=== PATIENT | male | born 1970 | race Hispanic/Latino ===

== ENCOUNTER 2018-07-03 19:41 | Inpatient (IN) | payer SELFPAY ==
[2018-07-03] MEDS ORDERED: NA CHLORIDE 0.9% 1,000 ML ONE (20:19)
--- NOTE | 2018-07-03 20:30 | RAD REPORT ---
EXAM DESCRIPTION: CT - Head Brain Wo Cont - 07/03/2018 8:23 pm CLINICAL HISTORY: Confusion/declining state COMPARISON: 2016 TECHNIQUE: Computed axial tomography of the head was obtained. IV contrast was not requested. All CT scans are performed using dose optimization technique as appropriate and may include automated exposure control or mA/KV adjustment according to patient size. FINDINGS: An intracranial bleed is not seen . The ventricles are normal in caliber. No extra-axial fluid collection is noted. Prominent cerebral atrophy is seen which appears mildly pro gressed from the prior exam Fluid within the sinuses/ mastoids is not seen. IMPRESSION: Cerebral atrophy appears progressed from the prior exam.
[2018-07-03 21:03] LABS: Absolute Lymphocytes (CBC) 0.6 K/uL (0.7-4.9); Absolute Monocytes 0.6 K/uL (0.1-1.3); Absolute Neutrophil 9.8 K/uL (1.8-8.0); Basophils % 0.4 % (0-1.3); Eosinophils % 0.1 % (0-4.4); Lymphocytes % 5.6 % (15.3-44.8); MCH 22.5 pg (27.0-35.0); MPV 8.6 fL (7.6-11.3); RBC Red Blood Cell Count 4.52 M/uL (4.33-5.43)
--- NOTE | 2018-07-03 21:11 | RAD REPORT ---
EXAM DESCRIPTION: Ba Single View07/03/2018 8:40 pm CLINICAL HISTORY: Chest pain COMPARISON: January 2017 FINDINGS: Lungs are hyperaerated. The lungs appear clear of acute infiltrate. The heart is normal s ize IMPRESSION: No acute abnormalities displayed
[2018-07-03 21:21] LABS: ALT/SGPT 96 U/L (12-78); AST/SGOT 89 U/L (15-37); Albumin 3.4 g/dL (3.4-5.0); Alkaline Phosphatase 100 U/L (45-117); BUN Blood Urea Nitrogen 53 mg/dL (7-18); Bicarbonate 17 mmol/L (21-32); Bilirubin Direct 0.6 mg/dL (0-0.2); Bilirubin Total 1.3 mg/dL (0.2-1.0); Glucose Level 133 mg/dL (74-106); Magnesium 2.7 mg/dL (1.8-2.4); NT PRO-BNP 344 pg/mL (<125); Potassium 3.4 mmol/L (3.5-5.1); Protein, Total 7.4 g/dL (6.4-8.2); Sodium Level 138 mmol/L (136-145); Troponin (Emerg Dept Use Only) < 0.02 ng/mL (0.0-0.045)
[2018-07-03 21:38] LABS: Anisocytosis 1+; Blood Morphology Comment NOTED (NOT SEEN); Burr Cells 2+; Hypochromasia 1+; Platelet Estimate ADEQ
--- NOTE | 2018-07-03 22:26 | ER ---
Nurse's Notes [facility] Name: Sal Karimi Age: 47 yrs Sex: Male : 1970 Arrival Date: 07/03/2018 Time: 19:46 Bed 3 Private MD: Diagnosis: Altered mental status, unspecified;Dehydration Presentation: 07/03 19:52 Presenting complaint: EMS states: "we were called out for a pt that was feeling weak, jd3 family reports the pt probably haven't eaten in a 2 weeks. They also reported that he drinks normally and hasn't alcohol for 2 weeks ether. he normally is A\\T\\O X 4, but today he is weak when walking and A\\T\\O X 1.". Transition of care: patient was not received from another setting of care. Onset of symptoms was July 03, 2018. Risk Assessment: Do you want to hurt yourself or someone else? Patient reports no desire to harm self or others. Initial Sepsis Screen: Does the patient meet any 2 criteria? Altered Mental Status. No. Patient's initial sepsis screen is negative. Does the patient have a suspected source of infection? No. Patient's initial sepsis screen is negative. Care prior to arrival: Medication(s) given: Normal saline infusion, 150 ml IV initiated. 20 GA, in the left hand, Glucose check: 127. 19:52 Method Of Arrival: EMS: [facility] jd3 19:52 Acuity: ROHIT 2 jd3 Historical: - Allergies: 20:00 No Known Allergies; jd3 - Home Meds: 20:00 ergocalciferol (vitamin D2) oral oral [Active]; omeprazole 20 mg Oral TbEC twice a day jd3 [Active]; cyclobenzaprine 10 mg Oral tab 1 tab every 8 hours [Active]; citalopram 40 mg tab 0.5 tab once daily [Active]; - PMHx: 20:00 Anemia; Depression; jd3 - PSHx: 20:00 None; jd3 - Immunization history:: Adult Immunizations unknown. - Social history:: Smoking status: unknown. - Ebola Screening: : Patient negative for fever greater than or equal to 101.5 degrees Fahrenheit, and additional compatible Ebola Virus Disease symptoms. Screenin:05 Abuse screen: Denies threats or abuse. Nutritional screening: pt's family reported pt jd3 probably hasn't eaten in 2 weeks.. Tuberculosis screening: No symptoms or risk factors identified. Fall Risk Ambulatory Aid- None/Bed Rest/Nurse Assist (0 pts). Gait- Weak (10 pts.). Mental Status- Overestimates/Forgets Limitations (15 pts.). Total [place] Fall Scale indicates Low Risk Score (25-44 pts). Fall prevention measures have been instituted. Side Rails Up X 2 Placed close to Nursing Station Frequent Obs/Assesments occuring. Assessment: 20:01 General: Appears uncomfortable, Behavior is calm, inappropriate for age. Pain: Denies jd3 pain. Neuro: Level of Consciousness is awake, confused, Oriented to person. Cardiovascular: Heart tones S1 S2 present Capillary refill < 3 seconds Patient's skin is warm and dry. Rhythm is sinus tachycardia. Respiratory: Airway is patent Respiratory effort is even, unlabored, Respiratory pattern is regular, symmetrical, Breath sounds are clear bilaterally. GI: Abdomen is flat, Bowel sounds present X 4 quads. Abd is soft and non tender X 4 quads. Patient currently denies abdominal pain, nausea, vomiting. : No signs and/or symptoms were reported regarding the genitourinary system. EENT: No signs and/or symptoms were reported regarding the EENT system. Derm: Skin is intact, Skin is dry, Skin is normal, Skin temperature is warm. Musculoskeletal: Circulation, motion, and sensation intact. Range of motion: intact in all extremities. 20:56 Reassessment: Patient appears in no apparent distress at this time. Patient and/or jd3 family updated on plan of care and expected duration. Pain level reassessed. family at [facility]. 21:47 Reassessment: Patient appears in no apparent distress at this time. No changes from jd3 previously documented assessment. Patient and/or family updated on plan of care and expected duration. Pain level reassessed. 22:30 Reassessment: Patient appears in no apparent distress at this time. No changes from jd3 previously documented assessment. Patient and/or family updated on plan of care and expected duration. Pain level reassessed. 23:26 Reassessment: Patient appears in no apparent distress at this time. No changes from jd3 previously documented assessment. Patient and/or family updated on plan of care and expected duration. Pain level reassessed. 07/04 00:12 Reassessment: Patient appears in no apparent distress at this time. No changes from [facility] previously documented assessment. Patient and/or family updated on plan of care and expected duration. Pain level reassessed. Vital Signs: 07/03 20:00 BP 111 / 86; Pulse 107; Resp 18 S; Temp 97.5(A); Pulse Ox 100% on R/A; Weight 72.57 kg jd3 (R); Height 6 ft. 0 in. (182.88 cm) (R); Pain 0/10; 20:40 BP 110 / 97; Pulse 115; Resp 17 S; Pulse Ox 100% on R/A; jd3 21:47 BP 117 / 91; Pulse 104; Resp 16 S; Pulse Ox 97% on R/A; jd3 22:30 BP 122 / 88; Pulse 102; Resp 18 S; Pulse Ox 98% on R/A; jd3 23:20 BP 103 / 92; Pulse 102; Resp 17 S; Pulse Ox 100% on R/A; jd3 07/04 00:12 BP 113 / 79; Pulse 97; Resp 17 S; Pulse Ox 100% on R/A; jd3 07/03 20:00 Body Mass Index 21.70 (72.57 kg, 182.88 cm) [facility] ED Course: 07/03 19:46 Patient arrived in ED. ds1 19:47 Ted Fernandes MD is Attending Physician. tw4 19:52 Danish Guadarrama, RN is Primary Nurse. jd3 19:57 Triage completed. jd3 20:01 Arm band placed on. EKG completed in triage. Results shown to MD. jd3 20:06 Patient has correct armband on for positive identification. Bed in low position. Call j light in reach. Side rails up X2. 20:10 CT completed. Patient moved to CT via stretcher. Patient moved back from CT. cw1 20:23 CT Head Brain wo Cont In Process Unspecified. EDMS 20:36 Maintain EMS IV. Dressing intact. Site clean \\T\\ dry. Gauge \\T\\ site: 20 G in left hand. robin 3 flushes well. 20:40 XRAY Chest (1 view) In Process Unspecified. EDMS 20:55 EKG done, by ED staff, reviewed by Ted Fernandes MD. ds4 20:55 Acetaminophen Sent. ds4 20:55 ETOH Level Sent. ds4 20:55 Ptt, Activated Sent. ds4 20:55 Salicylate Sent. ds4 20:55 Basic Metabolic Panel Sent. ds4 20:56 CBC with Diff Sent. ds4 20:56 LFT's Sent. ds4 20:56 Magnesium Sent. ds4 20:56 NT PRO-BNP Sent. ds4 20:56 PT-INR Sent. ds4 20:56 Troponin (emerg Dept Use Only) Sent. ds4 22:25 Maricruz Bess MD is Hospitalizing Provider. tw4 22:55 Lab(s) recollected, by me, sent to lab. Inserted 18 gauge 8 cm midline to right upper fc arm brachial vein on first attempt. Line with good blood return and flushes well. 23:01 Ptt, Activated Sent. ds4 23:01 PT-INR Sent. ds4 23:45 Straight cath inserted, using sterile technique, 16 Fr. Specimen obtained. ea 07/04 00:20 No provider procedures requiring assistance completed. Patient admitted, IV remains in jd3 place. Administered Medications: 07/03 20:35 Drug: NS 0.9% 1000 ml Route: IV; Rate: 125 ml/hr; Site: left hand; jd3 07/04 00:18 Follow up: Response: No adverse reaction; IV Status: Infusion continued upon admission ea 07/03 23:53 Drug: Banana Bag - (NS 0.9% 1000 ml, foLIC Acid 1 mg, Thiamine 100 mg, Multivitamin 1 jd3 amp) Route: IV; Rate: calculated rate; Site: right antecubital; 07/04 00:18 Follow up: IV Status: Infusion continued upon admission ea Outcome: 07/03 22:25 Decision to Hospitalize by Provider. tw4 07/04 00:21 Admitted to Med/surg accompanied by tech, via stretcher, room 415, with chart, Report jd3 called to Vaisliy ROSE Condition: stable Instructed on the need for admit, Demonstrated understanding of instructions. 00:29 Patient left the ED. jd3 Signatures: Dispatcher [employer] EDMS Sissy Hanna RN RN fc Sanford, Demi ds1 Richelle Menjivar1 Ramana Kelly ds4 Tanya Jackson RN RN ea Davies, Jonathon, RN RN jd3 Wadley, Terrence, MD CRUZ tw4
--- NOTE | 2018-07-03 22:26 | EDPHYS ---
Physician Documentation [facility] Name: Sal Karimi Age: 47 yrs Sex: Male : 1970 Arrival Date: 07/03/2018 Time: 19:46 Bed 3 Private MD: ED Physician Ted Fernandes HPI: 07/04 00:25 This 47 yrs old Male presents to ER via EMS with complaints of Altered Mental tw4 Status. 00:25 The patient presents with decreased mental status, decreased responsiveness. Onset: The tw4 symptoms/episode began/occurred at an unknown time. Possible causes: alcohol, head injury, low blood sugar. Associated signs and symptoms: The patient has no apparent associated signs or symptoms. Current symptoms: In the emergency department the patient's symptoms are unchanged from the initial presentation. Patient's baseline: Neuro: alert and fully oriented. Unable to obtain HPI due to altered mental status, patient's inability to understand questions. It is unknown whether or not the patient has had similar symptoms in the past. Historical: - Allergies: 07/03 20:00 No Known Allergies; jd3 - Home Meds: 20:00 ergocalciferol (vitamin D2) oral oral [Active]; omeprazole 20 mg Oral TbEC twice a day jd3 [Active]; cyclobenzaprine 10 mg Oral tab 1 tab every 8 hours [Active]; citalopram 40 mg tab 0.5 tab once daily [Active]; - PMHx: 20:00 Anemia; Depression; jd3 - PSHx: 20:00 None; jd3 - Immunization history:: Adult Immunizations unknown. - Social history:: Smoking status: unknown. - Ebola Screening: : Patient negative for fever greater than or equal to 101.5 degrees Fahrenheit, and additional compatible Ebola Virus Disease symptoms. ROS: 07/04 00:25 Unable to obtain ROS due to altered mental status. tw4 Exam: 00:25 Constitutional: This is a well developed, well nourished patient who is awake, alert, tw4 and in no acute distress. Head/Face: Normocephalic, atraumatic. Chest/axilla: Normal chest wall appearance and motion. Nontender with no deformity. No lesions are appreciated. Cardiovascular: Regular rate and rhythm with a normal S1 and S2. No gallops, murmurs, or rubs. Normal PMI, no JVD. No pulse deficits. Respiratory: Lungs have equal breath sounds bilaterally, clear to auscultation and percussion. No rales, rhonchi or wheezes noted. No increased work of breathing, no retractions or nasal flaring. Abdomen/GI: Soft, non-tender, with normal bowel sounds. No distension or tympany. No guarding or rebound. No evidence of tenderness throughout. Back: No spinal tenderness. No costovertebral tenderness. Full range of motion. MS/ Extremity: Pulses equal, no cyanosis. Neurovascular intact. Full, normal range of motion. 00:25 Neuro: Orientation: to person, Not oriented to place, time, situation, Mentation: slow to respond, confused, Memory: unable to test, Cranial nerves: unable to test, ALTERED MENTAL STATUS. Vital Signs: 07/03 20:00 BP 111 / 86; Pulse 107; Resp 18 S; Temp 97.5(A); Pulse Ox 100% on R/A; Weight 72.57 kg jd3 (R); Height 6 ft. 0 in. (182.88 cm) (R); Pain 0/10; 20:40 BP 110 / 97; Pulse 115; Resp 17 S; Pulse Ox 100% on R/A; jd3 21:47 BP 117 / 91; Pulse 104; Resp 16 S; Pulse Ox 97% on R/A; jd3 22:30 BP 122 / 88; Pulse 102; Resp 18 S; Pulse Ox 98% on R/A; jd3 23:20 BP 103 / 92; Pulse 102; Resp 17 S; Pulse Ox 100% on R/A; jd3 07/04 00:12 BP 113 / 79; Pulse 97; Resp 17 S; Pulse Ox 100% on R/A; jd3 07/03 20:00 Body Mass Index 21.70 (72.57 kg, 182.88 cm) jd3 MDM: 07/03 19:50 Patient medically screened. tw4 21:35 Patient medically screened. tw4 07/04 00:29 Data reviewed: vital signs, nurses notes. Data interpreted: Pulse oximetry: tw4 Interpretation: normal. Counseling: I had a detailed discussion with the patient and/or guardian regarding: the historical points, exam findings, and any diagnostic results supporting the discharge/admit diagnosis. Special discussion: I discussed with the patient/guardian in detail that at this point there is no indication for admission to the hospital. It is understood, however, that if the symptoms persist or worsen the patient needs to return immediately for re-evaluation. 07/03 19:52 Order name: Basic Metabolic Panel tw4 07/03 21:35 Interpretation: Normal except: K 3.4; GLUC 133; CO2 17; BUN 53; GFR 72. tw 07/03 19:52 Order name: CBC with Diff; Complete Time: 22:18 tw 07/03 21:37 Interpretation: Normal except: WBC 11.1; HGB 10.2; HCT 33.0; MCV 73.0; MCH 22.5; MCHC tw4 30.8; NEUT A 9.8; LYM% 5.6; SHILOH% 88.9; RDW 21.6; LYMA 0.6. 07/03 19:52 Order name: LFT's [facility] 07/03 21:36 Interpretation: Normal except: AST 89; ALT 96; BILIT 1.3; BILID 0.6; GLOB 4.0; A/G 0.9. tw07/03 19:52 Order name: Magnesium 07/03 21:36 Interpretation: Normal except: MG 2.7. 07/03 19:52 Order name: NT PRO-BNP 07/03 21:36 Interpretation: Normal except: NT PRO-BNP 344. 07/03 19:52 Order name: PT-INR 07/03 19:52 Order name: Troponin (emerg Dept Use Only) tw 07/03 21:37 Interpretation: Within normal limits: TROPED < 0.02. 07/03 19:52 Order name: Urine Drug Screen 07/03 19:52 Order name: Acetaminophen 07/03 19:52 Order name: ETOH Level; Complete Time: 21:35 tw 07/03 21:37 Interpretation: Within normal limits: ETOH < 3. 07/03 19:52 Order name: Ptt, Activated 07/03 19:52 Order name: Salicylate; Complete Time: 21:35 tw 07/03 21:37 Interpretation: Normal except: PEDRO LUIS 2.3. [facility] 07/03 21:10 Order name: Manual Differential; Complete Time: 22:18 EDMS 07/03 23:37 Order name: Ketone, Serum jd3 07/03 19:52 Order name: XRAY Chest (1 view); Complete Time: 21:35 tw4 07/03 19:52 Order name: EKG; Complete Time: 19:53 tw4 07/03 19:52 Order name: Cardiac monitoring; Complete Time: 19:55 tw4 07/03 19:52 Order name: EKG - Nurse/Tech; Complete Time: 20:07 tw4 07/03 19:52 Order name: IV Saline Lock; Complete Time: 20:07 tw4 07/03 19:52 Order name: Labs collected and sent; Complete Time: 20:53 tw4 07/03 19:52 Order name: O2 Per Protocol; Complete Time: 20:07 tw4 07/03 19:52 Order name: O2 Sat Monitoring; Complete Time: 20:08 tw4 07/03 19:52 Order name: Urine Dipstick-Ancillary (obtain specimen); Complete Time: 23:55 tw4 07/03 19:52 Order name: CT Head Brain wo Cont; Complete Time: 21:15 tw4 07/03 23:46 Order name: Acetone Level EDPA 07/03 23:55 Order name: CPK fc 07/03 23:58 Order name: Urine Dipstick--Ancillary (enter results) ms 07/04 00:14 Order name: Creatine Phosphokinase EDPA 07/03 23:37 Order name: Straight Cath - Urine; Complete Time: 23:53 jd3 EC:24 Rate is 112 beats/min. Rhythm is regular. QRS [place] is Normal. MO interval is normal. tw4 QRS interval is normal. QT interval is normal. No Q waves. T waves are Inverted in leads III, aVF. No ST changes noted. Clinical impression: Sinus tachycardia. Interpreted by me. Reviewed by me. Administered Medications: 07/03 20:35 Drug: NS 0.9% 1000 ml Route: IV; Rate: 125 ml/hr; Site: left hand; jd3 07/04 00:18 Follow up: Response: No adverse reaction; IV Status: Infusion continued upon admission ea 07/03 23:53 Drug: Banana Bag - (NS 0.9% 1000 ml, foLIC Acid 1 mg, Thiamine 100 mg, Multivitamin 1 jd3 amp) Route: IV; Rate: calculated rate; Site: right antecubital; 07/04 00:18 Follow up: IV Status: Infusion continued upon admission ea Disposition: 07/03/18 22:25 Hospitalization ordered by Maricruz Bess for Inpatient Admission. Preliminary diagnosis are Altered mental status, unspecified, Dehydration. - Bed requested for Telemetry/MedSurg (Inpatient). - Status is Inpatient Admission. jd3 - Condition is Stable. - Problem is new. - Symptoms have improved. UTI on Admission? No Signatures: Dispatcher [employer] EDPA Madie Woodard RN RN Danish Guadarrama RN RN j Ted Fernandes MD MD tw4 Tanya Jackson RN, ea Corrections: (The following items were deleted from the chart) 07/03 21:37 21:37 WBC 11.1; HGB 10.2; HCT 33.0; MCV 73.0; MCH 22.5; MCHC 30.8; NEUT A 9.8; LYM% tw4 5.6; SHILOH% 88.9; RDW 21.6; LYMA 0.6. 22:32 22:25 Hospitalization Ordered by Maricruz Bess MD for Inpatient Admission. Preliminary diagnosis is Altered mental status, unspecified; Dehydration. Bed requested for Telemetry/MedSurg (Inpatient). Status is Inpatient Admission. Condition is Stable. Problem is new. Symptoms have improved. UTI on Admission? No. tw4 07/04 00:29 07/03 22:32 07/03/2018 22:25 Hospitalization Ordered by Maricruz Bess MD for Inpatient jd3 Admission. Preliminary diagnosis is Altered mental status, unspecified; Dehydration. Bed requested for Telemetry/MedSurg (Inpatient). Status is Inpatient Admission. Condition is Stable. Problem is new. Symptoms have improved. UTI on Admission? No. mw
[2018-07-03 23:22] LABS: Protime INR 1.18
[2018-07-03] MEDS ORDERED: MAGNESIUM HYDROXIDE 8% 30 ML PO PRN (23:40)
[2018-07-03] MEDS ORDERED: ACETAMINOPHEN 500 MG TAB PO PRN (23:40)
[2018-07-03] MEDS ORDERED: ONDANSETRON 4 MG/2 ML VIAL IV PRN (23:40)
[2018-07-03] MEDS ORDERED: ALPRAZOLAM 0.25 MG TABLET PO PRN (23:40)
[2018-07-03] MEDS: NA CHLORIDE 0.9% 1,000 ML IV SCH (23:45)
[2018-07-03] MEDS ORDERED: ALBUTEROL 2.5 MG/3 ML NEB SOL NEB SCH (23:45)
[2018-07-03] MEDS ORDERED: MULTIVITAMINS 10 ML VIAL (INJ) IV ONE (23:48)
[2018-07-03] MEDS ORDERED: THIAMINE 200 MG/2 ML INJ ONE (23:48)
[2018-07-03] MEDS ORDERED: FOLIC ACID 5 MG/ML VIAL ONE (23:51)
[2018-07-04 00:14] LABS: Creatine Phosphokinase 33 U/L (39-308)
[2018-07-04 00:16] LABS: Barbiturates NEGATIVE (NEGATIVE); Benzodiazepines NEGATIVE (NEGATIVE); Cocaine NEGATIVE (NEGATIVE); METHAMPHETAM NEGATIVE (NEGATIVE); Methadone NEGATIVE (NEGATIVE); Opiates NEGATIVE (NEGATIVE); Phencyclidine NEGATIVE (NEGATIVE); THC Cannibis NEGATIVE (NEGATIVE)
[2018-07-04 01:14] LABS: Urine Blood NEGATIVE (NEG); Urine Glucose NEGATIVE (NEG); Urine Protein 1+ (NEG); Urine Specific Gravity 1.025 (1.005-1.030); Urine pH 5.5 (5.0-7.0)
[2018-07-04] MEDS: IPRATROPIUM BROM 0.5MG/2.5ML NEB SCH ×2 (01:15→08:00)
[2018-07-04 03:59] LABS: Urine Appearance TURBID; Urine Blood NEGATIVE (NEG); Urine Color RED; Urine Glucose NEGATIVE (NEG); Urine Protein NEGATIVE (NEG); Urine Specific Gravity 1.025 (1.005-1.030); Urine pH 5.5 (5.0-7.0)
[2018-07-04 04:04] LABS: Urine Microscopic Reflex ORDER UMIC
[2018-07-04 04:09] LABS: Urine Bilirubin NEGATIVE (NEG)
[2018-07-04 04:31] LABS: Urine Amorphous Sediment 4+ /HPF (NONE SEEN)
[2018-07-04 04:32] LABS: Urine Bacteria 20-50 /HPF (NONE SEEN); Urine Culture Reflex Order REFLEXED; Urine RBC NONE SEEN /HPF (NONE SEEN)
--- NOTE | 2018-07-04 04:47 | P.HP ---
Certification for Inpatient Patient admitted to: Inpatient With expected LOS: >2 Midnights Patient will require the following post-hospital care: None Practitioner: I am a practitioner with admitting privileges, knowledge of patient current condition, hospital course, and medical plan of care. Services: Services provided to patient in accordance with Admission requirements found in Title 42 Section 412.3 of the Code of Federal Regulations Patient History Date of Service: 07/03/18 Reason for admission: Altered mentation History of Present Illness: Patient is a 47-year-old gentleman who came into the hospital with confusion. Patient has a prior history of alcohol use. He says he has not had anything to drink in 2 months. He has had prior workup done which has revealed chronic changes to the brain which are reflective of his alcohol abuse. Patient has been confabulating. Patient continues to be forgetful regarding some the events that have happened to him recently. He will need to be admitted to the hospital for observation stay. If he worsens and we can changes to inpatient. Allergies No Known Allergies Allergy (Uncoded 07/04/18 01:40) unknown Home Medications: Unobtainable 07/04/18 - Past Medical/Surgical History Diabetic: No -: Anemia -: Depression Past Surgical History: Patient denies surgical history - Family History Father Family History: Reviewed- Non-Contributory - Social History Smoking Status: Unknown if ever smoked Alcohol use: Yes CD- Drugs: No Caffeine use: Yes Place of Residence: Home Review of Systems 10-point ROS is otherwise unremarkable Physical Examination - Vital Signs Temperature: 96.8 F Blood Pressure: 109/81 Pulse: 99 Respirations: 16 Pulse Ox (%): 100 - Physical Exam General: Alert, In no apparent distress, Oriented x1 HEENT: Atraumatic, PERRLA, Mucous membr. moist/pink, EOMI, Sclerae nonicteric Neck: Supple, 2+ carotid pulse no bruit, No LAD, Without JVD or thyroid abnormality Respiratory: Clear to auscultation bilaterally, Normal air movement Cardiovascular: Regular rate/rhythm, Normal S1 S2, Systolic murmur Gastrointestinal: Normal bowel sounds, Soft and benign, Non-distended, No tenderness Musculoskeletal: No clubbing, No swelling, No tenderness Integumentary: No rashes Neurological: Normal gait, Normal speech, Normal strength at 5/5 x4 extr, Normal tone, Sensation intact, Cranial nerves 3-12 intact, Normal affect Lymphatics: No axilla or inguinal lymphadenopathy - Studies Laboratory Data (last 24 hrs) 07/03/18 20:40: WBC 11.1 H, Hgb 10.2 L, Hct 33.0 L, Plt Count 194 07/03/18 20:40: Sodium 138, Potassium 3.4 L, BUN 53 H, Creatinine 1.10, Glucose 133 H, Magnesium 2.7 H, Total Bilirubin 1.3 H, AST 89 H, ALT 96 H, Alkaline Phosphatase 100 Assessment & Plan - Problems (Diagnosis) (1) Wernicke-Korsakoff syndrome Current Visit: Yes Status: Acute (2) Alcohol abuse Current Visit: Yes Status: Acute - Plan Plan: 1. IV hydration 2. Multi vitamin, thiamine, folate, B12 and hydrate 3. Counseled regarding over use of narcotics 4. Monitor labs closely 5. MRCP of the abdomen 6. Discuss with Ob regarding further interventions as needed 7. GI and DVT prophylaxis Discharge Plan: Home Plan to discharge in: 48 Hours - Advance Directives Does patient have a Living Will: No Does patient have a Durable POA for Healthcare: No - Code Status/Comfort Care Code Status Assessed: Yes Code Status: Full Code Critical Care: No Time Spent Managing PTS Care (In Minutes): 50
[2018-07-04] MEDS: NA CHLORIDE 0.9% 1,000 ML IV SCH ×2 (05:23→13:05)
[2018-07-04] MEDS ORDERED: POTASSIUM 25 MEQ EFFERV TAB PO ONE ×2 (06:00→19:46)
[2018-07-04 07:08] LABS: Protime INR 1.18
[2018-07-04 07:12] LABS: Absolute Lymphocytes (CBC) 2.9 K/uL (0.7-4.9); Absolute Monocytes 0.3 K/uL (0.1-1.3); Basophils % 0.6 % (0-1.3); Eosinophils % 0.2 % (0-4.4); Hematocrit 23.4 % (39.6-49.0); Lymphocytes % 34.6 % (15.3-44.8); MCH 22.7 pg (27.0-35.0); MCV 71.8 fL (80-100); MPV 7.6 fL (7.6-11.3); RBC Red Blood Cell Count 3.27 M/uL (4.33-5.43)
[2018-07-04 07:27] LABS: ALT/SGPT 74 U/L (12-78); AST/SGOT 68 U/L (15-37); Albumin 2.6 g/dL (3.4-5.0); Alkaline Phosphatase 77 U/L (45-117); BUN Blood Urea Nitrogen 53 mg/dL (7-18); Bicarbonate 22 mmol/L (21-32); Glucose Level 93 mg/dL (74-106); Magnesium 2.6 mg/dL (1.8-2.4); Phosphorus 4.8 mg/dL (2.5-4.9); Potassium 3.5 mmol/L (3.5-5.1); Protein, Total 5.7 g/dL (6.4-8.2); Sodium Level 144 mmol/L (136-145)
[2018-07-04 08:08] LABS: Anisocytosis 2+; Blood Morphology Comment NOTED (NOT SEEN); Macrocytosis 1+; Platelet Estimate ADEQ; Urine White Blood Cell Casts OK
[2018-07-04 08:27] LABS: Absolute Lymphocytes (CBC) 0.4 K/uL (0.7-4.9); Absolute Monocytes 0.5 K/uL (0.1-1.3); Basophils % 0.6 % (0-1.3); Eosinophils % 0.1 % (0-4.4); Hematocrit 24.5 % (39.6-49.0); MCH 22.9 pg (27.0-35.0); MCV 73.2 fL (80-100); MPV 7.4 fL (7.6-11.3); Monocytes % 6.7 % (3.3-12.3); RBC Red Blood Cell Count 3.35 M/uL (4.33-5.43)
[2018-07-04] MEDS ORDERED: ALBUTEROL 2.5 MG/3 ML NEB SOL NEB PRN (08:58)
[2018-07-04] MEDS ORDERED: IPRATROPIUM BROM 0.5MG/2.5ML NEB PRN (08:58)
[2018-07-04] MEDS ORDERED: ENOXAPARIN 40 MG/0.4 ML SQ SCH (09:00)
[2018-07-04] MEDS ORDERED: NA CHLORIDE 0.9% 250 ML ONE (13:35)
[2018-07-04] MEDS: CYCLOBENZAPRINE 10 MG TAB PO SCH ×2 (14:00→21:00)
--- NOTE | 2018-07-04 14:41 | P.PN ---
Subjective Date of Service: 07/04/18 Chief Complaint: Altered mentation Subjective: Tolerating diet, Ambulating, Improving, Working w/ PT, Doing well Review of Systems 10-point ROS is otherwise unremarkable Physical Examination - Vital Signs Temperature: 97.4 F Blood Pressure: 119/71 Pulse: 91 Respirations: 20 Pulse Ox (%): 97 - Physical Exam General: Alert, In no apparent distress HEENT: Atraumatic, PERRLA, EOMI Neck: Supple, JVD not distended Respiratory: Clear to auscultation bilaterally, Normal air movement Cardiovascular: Regular rate/rhythm, Normal S1 S2 Gastrointestinal: Normal bowel sounds, No tenderness Musculoskeletal: No tenderness Integumentary: No rashes Neurological: Normal speech, Normal tone, Normal affect Lymphatics: No axilla or inguinal lymphadenopathy - Studies Laboratory Data (last 24 hrs) 07/03/18 20:40: WBC 11.1 H, Hgb 10.2 L, Hct 33.0 L, Plt Count 194 07/03/18 20:40: Sodium 138, Potassium 3.4 L, BUN 53 H, Creatinine 1.10, Glucose 133 H, Magnesium 2.7 H, Total Bilirubin 1.3 H, AST 89 H, ALT 96 H, Alkaline Phosphatase 100 Medications List Reviewed: Yes Assessment And Plan - Current Problems (Diagnosis) (1) Anemia Current Visit: Yes Status: Acute Plan: Anemia Most Likely from Chronic Alcohol Abuse -2 units transfuse at this time -Repeat hgb Qualifiers: Anemia type: folate deficiency (2) Alcohol abuse Current Visit: Yes Status: Chronic Plan: Chronic Alcohol abuse -Ativan PRN -CIWA protocol (3) Wernicke-Korsakoff syndrome Current Visit: Yes Status: Chronic Discharge Plan: Home Plan to discharge in: 48 Hours - Code Status/Comfort Care Code Status Assessed: Yes Critical Care: No
[2018-07-04] MEDS: PANTOPRAZOLE 40MG TABLET PO SCH (17:17)
--- NOTE | 2018-07-04 19:15 | EKG ---
Test Date: 2018-07-03 Test Time: 20:01:22 [employer]oto [employer] Operator: JOSE MEASUREMENT RESULTS: Intervals: Rate: 112 SD: 134 QRSD: 94 QT: 374 QTc: 510 [place]: P: 83 SD: 134 QRS: 90 T: 63 INTERPRETIVE STATEMENTS: Sinus tachycardia with fusion complexes Right atrial enlargement Rightward axis Pulmonary disease pattern Abnormal ECG Compared to ECG 01/25/2017 11:39:50 Fusion complex(es) now present Atrial abnormality now present Right-axis deviation now present Sinus rhythm no longer present Electronically Signed On 07-04-18 19:14:47 CDT by He Parry
[2018-07-04 19:20] LABS: Hematocrit 26.8 % (39.6-49.0)
[2018-07-04] MEDS ORDERED: HOME MED 1 EA UNK (Omeprazole [Omeprazole] 20 MG) PO SCH (21:00)
[2018-07-04 23:29] VITALS: O2SAT 98
[2018-07-05] MEDS: NA CHLORIDE 0.9% 1,000 ML IV SCH (00:47)
[2018-07-05] MEDS ORDERED: POTASSIUM 25 MEQ EFFERV TAB PO STA (04:19)
[2018-07-05 05:21] LABS: BUN Blood Urea Nitrogen 26 mg/dL (7-18); Bicarbonate 23 mmol/L (21-32); Glucose Level 81 mg/dL (74-106); Magnesium 2.2 mg/dL (1.8-2.4); Phosphorus 2.6 mg/dL (2.5-4.9); Potassium 3.8 mmol/L (3.5-5.1); Sodium Level 147 mmol/L (136-145)
[2018-07-05 05:28] VITALS: BMI 15.7
[2018-07-05] MEDS ORDERED: HOME MED 1 EA UNK (Citalopram Hydrobromide [Celexa] 40 MG) PO SCH (08:00)
[2018-07-05] MEDS ORDERED: POTASSIUM 25 MEQ EFFERV TAB PO ONE (08:00)
[2018-07-05] MEDS ORDERED: CITALOPRAM 10 MG TABLET PO SCH (08:00)
[2018-07-05] MEDS: CYCLOBENZAPRINE 10 MG TAB PO SCH (08:42)
[2018-07-05] MEDS: PANTOPRAZOLE 40MG TABLET PO SCH (08:43)
--- NOTE | 2018-07-05 11:57 | P.DS ---
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 Patient has a prior history of alcohol use. He says he has not had anything to drink in 2 months. He has had prior workup done which has revealed chronic changes to the brain which are reflective of his alcohol abuse. Patient has been confabulating. Patient continues to be forgetful regarding some the events that have happened to him recently. He will need to be admitted to the hospital for observation stay. If he worsens and we can changes to inpatient. Hospital Course: Overall during the hospital stay patient remained stable The patient was initially admitted to the hospital for altered mental status. Patient does have a history of alcohol abuse in the past. Wernicke's encephalopathy is a chronic concern for the patient. Patient does also have confabulation along with it. Patient was then admitted to the hospital was started on IV fluids here and was given 2 units of packed RBCs for his anemia of 7.7. Patient recovered well and was alert and oriented x2. This was discharged home under stable condition. Patient has intermittent confusion along with confabulation due to his chronic Wernicke's 8 aphasia and encephalopathy. Family was made aware of this situation. Patient was then discharged home under stable condition. All lab work and imaging were negative on the date of discharge Vital Signs/Physical Exam: Temp Pulse Resp BP Pulse Ox 96.5 F L 78 16 107/68 100 07/05/18 08:00 07/05/18 08:00 07/05/18 08:00 07/05/18 08:00 07/05/18 08:00 General: Alert, In no apparent distress, Oriented x2, Confused HEENT: Atraumatic, PERRLA, EOMI Neck: Supple, JVD not distended Respiratory: Clear to auscultation bilaterally, Normal air movement Cardiovascular: Regular rate/rhythm, Normal S1 S2 Gastrointestinal: Normal bowel sounds, No tenderness Musculoskeletal: No tenderness Integumentary: No rashes Neurological: Normal speech, Normal tone, Normal affect Lymphatics: No axilla or inguinal lymphadenopathy Laboratory Data at Discharge: WBC 8.0 K/uL (4.3-10.9) 07/04/18 08:07 Hgb 8.3 g/dL (13.6-17.9) L 07/04/18 19:07 Hct 26.8 % (39.6-49.0) L 07/04/18 19:07 Plt Count 142 K/uL (152-406) L 07/04/18 08:07 PT 13.9 SECONDS (9.5-12.5) H 07/04/18 06:40 INR 1.18 07/04/18 06:40 APTT 28.5 SECONDS (24.3-36.9) 07/04/18 06:40 Sodium 147 mmol/L (136-145) H 07/05/18 04:11 Potassium 3.8 mmol/L (3.5-5.1) 07/05/18 04:11 BUN 26 mg/dL (7-18) H D 07/05/18 04:11 Creatinine 0.40 mg/dL (0.55-1.3) L 07/05/18 04:11 Glucose 81 mg/dL (74-106) 07/05/18 04:11 Phosphorus 2.6 mg/dL (2.5-4.9) 07/05/18 04:11 Magnesium 2.2 mg/dL (1.8-2.4) 07/05/18 04:11 Total Bilirubin 1.0 mg/dL (0.2-1.0) 07/04/18 06:40 AST 68 U/L (15-37) H 07/04/18 06:40 ALT 74 U/L (12-78) 07/04/18 06:40 Alkaline Phosphatase 77 U/L (45-117) 07/04/18 06:40 Home Medications: Citalopram Hydrobromide [Celexa] 40 mg PO BREAKFAST 07/04/18 Cyclobenzaprine [Flexeril*] 10 mg PO Q8H 07/04/18 Ergocalciferol (Vitamin D2) [Vitamin D 50,000 Unit Cap] 50,000 unit PO EVERY 7TH DAY 07/04/18 Omeprazole 20 mg PO BID 10/28/18 Diet: Regular Activity: Ad vahid Followup: Layton Renee MD [ASSOCIATE-ACTIVE - CAN ADMIT] - 1 Week
[2018-07-05 15:03] VITALS: BP 111/65; TEMP 96.7
[2018-07-11] MEDS ORDERED: DRISDOL (VITAMIN D=ERGOCALCIFEROL) 50000 UNIT CAP PO SCH (09:00)
== END 2018-07-05 15:50 | disposition home or self-care (01) | DRG 812 ==
LOC: ER 19:41 → 4TH 21:56 → ERHOLD 22:37
PROVIDERS: ADMIT Hospitalist; ATTEND Hospitalist
PROC: 30233N1 Transfusion of Nonautologous Red Blood Cells into Peripheral Vein, Percutaneous Approach (ICD-10-PCS; principal; 2018-07-03)
DX: D52.9 Folate deficiency anemia, unspecified (principal); F10.26 Alcohol dependence with alcohol-induced persisting amnestic disorder
CPT/HCPCS: 36415; 51702; 70450; 71045; 80048; 80053; 80076; 80307; 80320; 80329; 81003; 81015; 82010; 82550; 82962; 83735; 83880; 84100; 84132; 84484; 85014; 85018; 85025; 85610; 85730; 86850; 86900; 86901; 87086; 87088; 93005; 94640; 96361; 96365; 99285; J3411; J7030; P9016